=== PATIENT | male | born 1985 | race Caucasian/White ===

== ENCOUNTER 2016-12-06 22:43 | Emergency (ER) | payer MEDICAID, OTHER ==
[~2016-12-06] VITALS: Ht 170.2 cm; Wt 72.7 kg
[~2016-12-06 22:43] MED LIST: DIVA250T25 PO; DOCU-119; RISP1 PO
[2016-12-06] MEDS ORDERED: BENZ0.5T6 PO (22:55)
[2016-12-06] MEDS ORDERED: TRAZ-144 PO (22:55)
[2016-12-07] MEDS ORDERED: ACETAMINOPHEN 500 MG TABLET PO ONE (01:30)
[2016-12-07] MEDS ORDERED: AZITHROMYCIN 250 MG TABLET PO ONE (01:45)
[2016-12-07] MEDS ORDERED: STAL150 PO (01:55)
[2016-12-07] MEDS ORDERED: ENTA200 PO (01:55)
[2016-12-07] MEDS ORDERED: SERT25TA PO (01:55)
[2016-12-07] MEDS ORDERED: OLAN10VI3 PO (01:55)
[2016-12-07] MEDS ORDERED: ROPI2TAB25 PO (01:55)
[2016-12-07] MEDS ORDERED: CARB-101 PO (01:55)
[2016-12-07] MEDS ORDERED: LORA0.5T83 PO (01:55)
[2016-12-07] MEDS ORDERED: LEVO50TA4 PO (01:55)
[2016-12-07] MEDS ORDERED: AMAN50SY PO (01:55)
[2016-12-07 02:36] VITALS: BP 121/69
== END 2016-12-07 03:11 | disposition home or self-care (01) ==
LOC: EMS 22:44
DX: J40 Bronchitis, not specified as acute or chronic (principal)
CPT/HCPCS: 71020; 99284

== ENCOUNTER 2016-12-25 16:27 | Emergency (ER) | payer OTHER ==
[~2016-12-25] VITALS: Ht 172.7 cm; Wt 74.0 kg
[~2016-12-25 16:27] MED LIST changes: +BENZ0.5T6 PO; -DOCU-119; +TRAZ-144 PO
[2016-12-25] MEDS ORDERED: IBUPROFEN 800 MG TABLET PO ONE (18:30)
[2016-12-25 18:38] VITALS: BP 126/71
== END 2016-12-25 19:21 | disposition home or self-care (01) ==
LOC: EMS 16:28
DX: S60.221A Contusion of right hand, initial encounter (principal); X58.XXXA Exposure to other specified factors, initial encounter; Y93.89 Activity, other specified; Y92.89 Other specified places as the place of occurrence of the external cause; Y99.8 Other external cause status
CPT/HCPCS: 99284